=== PATIENT | female | born 1975 | race Caucasian/White ===

== ENCOUNTER → 2017-11-06 | Outpatient (CLI) | payer BC ==
[~2017-11-06] MED LIST: ASPI-390 PO; ONDA4TAB7 SL
--- NOTE | 2017-11-07 09:09 | CODING QUERY NO DIAGNOSIS ---
TREATMENT RENDERED WITHOUT A DIAGNOSIS To promote full compliance with coding requirements relating to patient care, physician participation is requested in all cases of train attendant uncertainty. Please assist us with providing a diagnosis/symptom for the test(s) below: A diagnosis/symptom was not documented on your Order. A valid diagnosis/symptom is required to bill all insurances. Please remember that we are unable to code a diagnosis of rule out, probable, possible, questionable, or suspected. Tests that require a diagnosis for date of service 11/06/17: * CHLAMYDIA/GC DNA (SPECIMEN SITE ENDOCERVICAL) DIAGNOSIS: Provider Signature: Date: Thank you Ericka Gómez [employer] Once completed, please kindly fax back to [phone] For questions please call [phone]
== END | disposition home or self-care (01) ==
LOC: C.LABSPEC 14:18
PROVIDERS: ATTEND Obstetrics & Gynecology
DX: Z34.81 Encounter for supervision of other normal pregnancy, first trimester (principal); Z3A.00 Weeks of gestation of pregnancy not specified

== ENCOUNTER → 2017-11-06 | Outpatient (CLI) | payer BC | END | disposition home or self-care (01) | LOC: C.PAPS 14:40 | PROVIDERS: ATTEND Obstetrics & Gynecology | DX: Z34.81 Encounter for supervision of other normal pregnancy, first trimester (principal) ==

== ENCOUNTER → 2018-01-12 | Outpatient (CLI) | payer BC ==
[2018-01-12 11:05] LABS: BASO % 0.2 %; BASO ABS # 0.02 K/uL (0-0.2); EOS % 0.6 %; EOS ABS # 0.06 K/uL (0-0.5); HEMATOCRIT 37.6 % (37-47); HEMOGLOBIN 13.2 g/dL (12.0-16.0); IG# 0.03 K/uL (0.00-0.02); LYMPH % 19.4 %; LYMPH ABS # 1.99 K/uL (1.2-3.4); MEAN CELL VOLUME 90.6 fL (80-100); MEAN CORPUSCULAR HEMOGLOBIN 31.8 pg (25-34); MEAN CORPUSCULAR HGB CONC 35.1 g/dl (32-36); MEAN PLATELET VOLUME 10.5 fL (7.4-10.4); MONO % 5.7 %; MONO ABS # 0.58 K/uL (0.11-0.59); NEUT % 73.8 %; NEUT ABS # 7.57 K/uL (1.4-6.5); PLATELET COUNT 293 K/uL (130-400); RED CELL DISTRIBUTION WIDTH CV 13.4 % (11.5-14.5); RED CELL DISTRIBUTION WIDTH SD 44.4 fL (36.4-46.3); WHITE BLOOD COUNT 10.25 K/uL (4.8-10.8)
== END | disposition home or self-care (01) ==
LOC: C.LAB1850 09:01
PROVIDERS: ATTEND Obstetrics & Gynecology
DX: O09.512 Supervision of elderly primigravida, second trimester (principal)

== ENCOUNTER → 2018-02-08 | Outpatient (CLI) | payer BC | END | disposition home or self-care (01) | LOC: C.LABSPEC 14:44 | PROVIDERS: ATTEND Obstetrics & Gynecology | DX: O99.89 Other specified diseases and conditions complicating pregnancy, childbirth and the puerperium (principal); R07.0 Pain in throat; Z3A.00 Weeks of gestation of pregnancy not specified ==

== ENCOUNTER 2018-03-12 16:28 | Outpatient (CLI) | payer BC ==
[2018-03-12] MEDS ORDERED: LACTATED RINGER'S 1000ML 500 ML IV ONE (16:31)
[2018-03-12] MEDS ORDERED: LACTATED RINGER'S 1000ML 1,000 ML IV SCH (16:31)
[2018-03-12] MEDS ORDERED: TERBUTALINE SULFATE 1 MG/ML VIAL SQ PRN (16:45)
== END 2018-03-12 17:40 | disposition home or self-care (01) ==
LOC: C.OPB 16:28 → C.LD 16:29 → C.OPB 17:40
PROVIDERS: ATTEND Obstetrics & Gynecology
DX: O62.9 Abnormality of forces of labor, unspecified (principal); Z3A.00 Weeks of gestation of pregnancy not specified

== ENCOUNTER → 2018-05-28 | Outpatient (CLI) | payer BC | END | disposition home or self-care (01) | LOC: C.LABSPEC 15:47 | PROVIDERS: ATTEND Obstetrics & Gynecology | DX: O09.513 Supervision of elderly primigravida, third trimester (principal); Z3A.00 Weeks of gestation of pregnancy not specified ==

== ENCOUNTER 2018-06-09 19:42 | Inpatient (IN) | payer BC ==
[~2018-06-09] VITALS: Ht 165.1 cm; Wt 66.4 kg
[2018-06-09] MEDS ORDERED: PRENTAB26 PO (20:33)
[2018-06-09 20:34] VITALS: Ht 165.1 cm; Wt 66.4 kg
[2018-06-09] MEDS ORDERED: LACTATED RINGER'S 1000ML 1,000 ML IV PRN (21:57)
[2018-06-09] MEDS ORDERED: LACTATED RINGER'S 1000ML 1,000 ML IV SCH (21:57)
[2018-06-09 22:51] LABS: HEMATOCRIT 32.7 % (37-47); MEAN CELL VOLUME 88.4 fL (80-100); MEAN CORPUSCULAR HEMOGLOBIN 29.7 pg (25-34); MEAN CORPUSCULAR HGB CONC 33.6 g/dl (32-36); NUCLEATED RED BLOOD CELL ABS 0.02 K/uL (0-0); PLATELET COUNT 228 K/uL (130-400); RED CELL DISTRIBUTION WIDTH CV 12.7 % (11.5-14.5); RED CELL DISTRIBUTION WIDTH SD 41.1 fL (36.4-46.3); WHITE BLOOD COUNT 15.14 K/uL (4.8-10.8)
[2018-06-09] MEDS ORDERED: EpHEDrine SULFATE INJ 50 MG/ML AMP ONE (22:51)
[2018-06-09] MEDS ORDERED: FENTANYL CITRATE INJ 50 MCG/1 ML 2 ML VIAL ONE (22:51)
[2018-06-09] MEDS ORDERED: BUPIVACAINE 0.25% 30 ML VIAL ONE (22:51)
[2018-06-09] MEDS ORDERED: FENTANYL 2MCG/ML ROPIV 1.25MG/ML 100ML BAG ONE (22:52)
[2018-06-09] MEDS ORDERED: NALOXONE HCL INJ 1 MG in SODIUM CHLORIDE 0.9% 1000ML 1,000 ML IV PRN (23:58)
[2018-06-09] MEDS ORDERED: LACTATED RINGER'S 1000ML 500 ML IV PRN (23:58)
[2018-06-10] MEDS ORDERED: DiphenhydrAMINE HCL 50 MG/ML VIAL IV PRN
[2018-06-10] MEDS ORDERED: FENTANYL 2MCG/ML ROPIV 1.25MG/ML 100ML BAG EPI PRN
[2018-06-10] MEDS ORDERED: EpHEDrine SULFATE INJ 50 MG/ML AMP IV PRN
[2018-06-10] MEDS ORDERED: NALBUPHINE HCL INJ 10 MG/ML 1ML AMP IV PRN
[2018-06-10] MEDS ORDERED: NALOXONE HCL INJ 0.4 MG/1 ML VIAL/CARP IV PRN
[2018-06-10] MEDS ORDERED: ONDANSETRON INJ 2 MG/ML 2 ML VIAL IV PRN
[2018-06-10] MEDS ORDERED: OXYTOCIN 30 UNITS/500ML NSS IV ONE (00:35)
[2018-06-10] MEDS ORDERED: METHYLERGONOVINE MALEATE 0.2 MG/ML AMP ONE (00:48)
[2018-06-10] MEDS ORDERED: OXYTOCIN 30 UNITS/500ML NSS IV PRN (01:15)
[2018-06-10] MEDS ORDERED: DIPHTHERIA/TETANUS/PERTUSSIS 0.5 ML SYR/VIAL IM. ONE (01:15)
[2018-06-10] MEDS ORDERED: METHYLERGONOVINE MALEATE 0.2 MG/ML AMP IM ONE (01:15)
[2018-06-10] MEDS ORDERED: ACETAMINOPHEN 325 MG TAB PO PRN (01:15)
[2018-06-10] MEDS ORDERED: HYDROCORTISONE ACETATE 25 MG SUPP PR PRN (01:15)
[2018-06-10] MEDS ORDERED: LANOLIN OINT EXT PRN ×2 (01:15→01:30)
--- NOTE | 2018-06-10 01:20 | Anesthesia Procedure Note ---
Anesthesia Epidural Removal Nt Date & Time Jun 10, 2018 at 01:20 Vital Signs Pain Intensity: 0.0 Notes Mental Status: alert / awake / arousable, participated in evaluation Nausea / Vomiting: adequately controlled Pain: adequately controlled Airway Patency, RR, SpO2: stable & adequate BP & HR: stable & adequate Hydration State: stable & adequate Neuraxial Anesthesia: was administered Anesthetic Complications: no major complications apparent, pt satisfied with anesthetic care Epidural: removed without complications, with tip intact
[2018-06-10] MEDS ORDERED: ACETAMINOPHEN/CODEINE 300/30MG TAB PO PRN ×2 (01:30)
[2018-06-10] MEDS ORDERED: BENZOCAINE 20% AER SPR 82.5 GM CAN EXT PRN (01:30)
[2018-06-10] MEDS ORDERED: SUPERCREAM 0.870 % 15GM JAR EXT PRN (01:30)
[2018-06-10 03:45] VITALS: BP 114/71; PULSE 101; TEMP 36.9; O2SAT 96
--- NOTE | 2018-06-10 04:15 | OPERATIVE REPORT ---
DATE OF OPERATION: 06/10/2018 DELIVERY NOTE A 42-year-old 4, para 3, 1 spontaneous AB, in good general health. Blood type is O positive, rubella immune. Vaginal beta strep negative. Went into spontaneous labor the day prior to admission. She contracted throughout the night, slept fitfully, then the next day the contractions became stronger. She was told to come in to maternity. She was having regular contractions. She was rating them at the beginning of 03/07 and we checked her 2 hours later and she went from 2-3 with a short cervix and tight membranes. She labored on her own unstimulated. Eventually she received epidural for pain control, but after the epidural she began to have some type 1 decels. I came up and checked her, she was about 8-9, the membranes intact. Ruptured the membranes, fluid was clear. In about 5 minutes, she went to full dilatation with 4-5 contractions. She pushed out a live male via direct occiput anterior position over an intact perineum. was suctioned through the mouth and the nose. Cord was clamped, cut by the father, cord blood was taken. With IV Pitocin running, the placenta was removed intact. The first-degree laceration of the perineum was repaired anatomically. The vaginal mucosa was approximated out and to beyond the hymenal ring with a running 2-0 Vicryl. A deep suture of 2-0 Vicryl was used to approximate the bulbocavernosus muscle. Separate deep suture was used to approximate the perineal body and a running subcuticular suture was used to approximate the perineal skin edges. Following this, vag exam including rectovaginal examination revealed no hematoma formation or sponges in the vagina. Hemostasis was excellent. Estimated blood loss was only 100 mL, 1 and 5 minute Apgars were estimated at 8 and 9 respectively. I attest to the content of the Intraoperative Record and any orders documented therein. Any exception s are noted below.
[2018-06-10 08:00] VITALS: BP 118/75; PULSE 78; TEMP 36.8
[2018-06-10] MEDS: DOCUSATE SODIUM 100 MG CAP PO SCH ×2 (08:46→19:30)
[2018-06-10] MEDS: IBUPROFEN 600 MG TAB PO PRN ×2 (14:38→23:46)
[2018-06-10 16:00] VITALS: BP 108/72; PULSE 84; TEMP 36.7
--- NOTE | 2018-06-10 18:17 | Progress Note ---
Subjective Jun 10, 2018. Subjective conversation w/ patient Ambulation: ambulating normally Voiding: no voiding problems Passing Gas: Yes Diet Tolerance: Regular Diet Lochia: Small Feeding Type: Breast Feeding Review of Systems Constitutional: + fever Objective Vital Signs Date Time Temp Pulse Resp B/P (MAP) Pulse Ox O2 Delivery O2 Flow Rate FiO2 06/10/18 16:00 36.7 84 18 108/72 (84) Room Air 06/10/18 08:00 36.8 78 18 118/75 (89) Room Air 06/10/18 08:00 Room Air 06/10/18 03:45 Room Air 06/10/18 03:45 36.9 101 16 114/71 (85) 96 Room Air Physical Exam General Appearance: WELL-APPEARING Abdomen: non tender Fundus: Firm, Non-Tender Extremities: no pedal edema, no calf tenderness Laboratory Results Last 24 Hours Test 06/09/18 22:10 White Blood Count 15.14 K/uL Red Blood Count 3.70 M/uL Hemoglobin 11.0 g/dL Hematocrit 32.7 % Mean Corpuscular Volume 88.4 fL Mean Corpuscular Hemoglobin 29.7 pg Mean Corpuscular Hemoglobin Concent 33.6 g/dl RDW Standard Deviation 41.1 fL RDW Coefficient of Variation 12.7 % Platelet Count 228 K/uL Mean Platelet Volume 12.0 fL Nucleated RBC Absolute Count (auto) 0.02 K/uL Nucleated Red Blood Cells % 0.1 % Assessment and Plan Post- Day#: 0
[2018-06-10 19:35] VITALS: BP 111/68; PULSE 76; TEMP 36.7; O2SAT 97
[2018-06-10 23:50] VITALS: BP 107/67; PULSE 74; TEMP 36.5
[2018-06-11] MEDS: IBUPROFEN 600 MG TAB PO PRN ×2 (06:27→10:14)
[2018-06-11 07:08] LABS: HEMOGLOBIN 11.6 g/dL (12.0-16.0)
[2018-06-11] MEDS: DOCUSATE SODIUM 100 MG CAP PO SCH (07:45)
[2018-06-11 08:00] VITALS: BP 117/82; PULSE 67; TEMP 36.5; O2SAT 98
--- NOTE | 2018-06-11 11:53 | Progress Note ---
Subjective Jun 11, 2018. Subjective conversation w/ patient Ambulation: ambulating normally Voiding: no voiding problems Passing Gas: Yes Diet Tolerance: Regular Diet Lochia: Small Feeding Type: Breast Feeding Review of Systems Constitutional: + fever Objective Vital Signs Date Time Temp Pulse Resp B/P (MAP) Pulse Ox O2 Delivery O2 Flow Rate FiO2 06/11/18 08:00 36.5 67 18 117/82 (94) 98 Room Air 06/11/18 07:15 Room Air 06/10/18 23:50 Room Air 06/10/18 23:50 36.5 74 18 107/67 (80) 06/10/18 19:35 97 Room Air 06/10/18 19:35 36.7 76 18 111/68 (82) 97 Room Air 06/10/18 16:00 36.7 84 18 108/72 (84) Room Air Physical Exam General Appearance: WELL-APPEARING Fundus: Firm, Non-Tender Extremities: no pedal edema, no calf tenderness Laboratory Results Last 24 Hours Test 06/11/18 06:53 Hemoglobin 11.6 g/dL Hematocrit 35.0 % Assessment and Plan Post- Day#: 1 Continue Routine Care: patient requests discharge
--- NOTE | 2018-06-11 11:55 | Discharge Instructions ---
Discharge Instructions Date of Service Jun 11, 2018. Admission Reason for Admission: Active Labor Discharge Discharge Diagnosis / Problem: term delivery Discharge Goals Goal(s): Routine recovery after delivery Activity Recommendations Activity Limitations: as noted below ACTIVITY RECOMMENDATIONS: * Gradual return to full activity over the next 2-3 weeks. * No lifting - nothing heavier than baby over the next 2-3 weeks. * Do not engage in vigorous exercise, sexual activity or sports until cleared by your physician. * Do not drive or operate any motorized equipment until cleared by your physician. * You may shower/bathe daily. DIET: Resume Previous Diet If Breast-feeding: * Increase caloric intake by 500 calories, eat 3 well balanced meals, 2 high protein snacks a day and drink 6-8 8oz. glasses of fluid per day. BREAST CARE: If you are not breast feeding: * Wear a supportive bra 24 hours a day for one to two weeks. * Avoid stimulating your breasts and nipples as much as possible during the first few weeks after delivery. * When taking a shower, have the warm water hit your back, not breasts. * When your breasts feel full, apply ice packs. Usually three to four times a day helps ease the discomfort. * Take a mild pain medication (Tylenol / Motrin) when you are uncomfortable. If breast feeding: * Use breast milk to lubricate nipples. Lansinoh cream may be used for sore nipples. You do not need to remove cream prior to breast feeding. If using a different brand of cream, check the label for directions regarding removal of cream prior to nursing. * Wear a supportive bra. * If having problems with breasts or breast feeding, call a marketing regional consultant or your health care provider. OVER THE COUNTER MEDICATION: * For discomfort or pain, you may use Acetaminophen (Tylenol), Ibuprofen (Advil ), or Naproxen (Aleve) following the package directions. * For constipation you may use Colace following the package directions. SPECIAL CARE INSTRUCTIONS: * Vaginal rest (no tampons, douching, intercourse) until after doctor 's visit. * control as discussed with doctor. * Verbalizes understanding of car seat law as reviewed with patient nursing. * Car Seat hand-out given and reviewed with patient by nursing. * Shaken baby information reviewed with patient by nursing. Call you doctor if: * Temperature greater than or equal to 100.4 degrees F or 38.0 degrees C. Take your temperature twice daily for a week. * Bleeding becomes heavier than the heaviest part of your period - saturating a sanitary pad within an hour. * Passing large clots. * Bleeding has a foul smelling odor. * Signs and symptoms of phlebitis: leg pain, warm, red or swollen area on leg. * "Baby Blues" lasting longer than two weeks. ++ If you have had a and incision has increased pain, redness, swelling, presence of any drainage, or if the incision starts to open up. If you have any questions or concerns, call your health care practitioner at [phone]. FOLLOW-UP VISIT: Please call the office at to schedule a 6 week examination. . Current Hospital Diet ACTIVITY RECOMMENDATIONS: * Gradual return to full activity over the next 2-3 weeks. * No lifting - nothing heavier than baby over the next 2-3 weeks. * Do not engage in vigorous exercise, sexual activity or sports until cleared by your physician. * Do not drive or operate any motorized equipment until cleared by your physician. * You may shower/bathe daily. DIET: Resume Previous Diet If Breast-feeding: * Increase caloric intake by 500 calories, eat 3 well balanced meals, 2 high protein snacks a day and drink 6-8 8oz. glasses of fluid per day. BREAST CARE: If you are not breast feeding: * Wear a supportive bra 24 hours a day for one to two weeks. * Avoid stimulating your breasts and nipples as much as possible during the first few weeks after delivery. * When taking a shower, have the warm water hit your back, not breasts. * When your breasts feel full, apply ice packs. Usually three to four times a day helps ease the discomfort. * Take a mild pain medication (Tylenol / Motrin) when you are uncomfortable. If breast feeding: * Use breast milk to lubricate nipples. Lansinoh cream may be used for sore nipples. You do not need to remove cream prior to breast feeding. If using a different brand of cream, check the label for directions regarding removal of cream prior to nursing. * Wear a supportive bra. * If having problems with breasts or breast feeding, call a marketing regional consultant or your health care provider. OVER THE COUNTER MEDICATION: * For discomfort or pain, you may use Acetaminophen (Tylenol), Ibuprofen (Advil ), or Naproxen (Aleve) following the package directions. * For constipation you may use Colace following the package directions. SPECIAL CARE INSTRUCTIONS: * Vaginal rest (no tampons, douching, intercourse) until after doctor 's visit. * control as discussed with doctor. * Verbalizes understanding of car seat law as reviewed with patient nursing. * Car Seat hand-out given and reviewed with patient by nursing. * Shaken baby information reviewed with patient by nursing. Call you doctor if: * Temperature greater than or equal to 100.4 degrees F or 38.0 degrees C. Take your temperature twice daily for a week. * Bleeding becomes heavier than the heaviest part of your period - saturating a sanitary pad within an hour. * Passing large clots. * Bleeding has a foul smelling odor. * Signs and symptoms of phlebitis: leg pain, warm, red or swollen area on leg. * "Baby Blues" lasting longer than two weeks. ++ If you have had a and incision has increased pain, redness, swelling, presence of any drainage, or if the incision starts to open up. If you have any questions or concerns, call your health care practitioner at [phone]. FOLLOW-UP VISIT: Please call the office at to schedule a 6 week examination. Patient's current hospital diet: Regular OB Diet Discharge Diet Recommended Diet: Regular Diet Pending Studies Studies pending at discharge: no Medical Emergencies . Who to Call and When: Medical Emergencies: If at any time you feel your situation is an emergency, please call 911 immediately. . Non-Emergent Contact Non-Emergency issues call your: [facility] Call Non-Emergent contact if: temperature is above 100.5 . . "Provider Documentation" section prepared by Raul Campuzano. .
[2018-06-11 13:34] VITALS: BP_DIAS 82; PULSE 67; TEMP 36.5
[2018-06-11] MEDS ORDERED: BISACODYL 5 MG TABEC PO SCH (20:00)
[2018-06-12] MEDS ORDERED: BISACODYL 10 MG SUPP PR PRN (07:00)
== END 2018-06-11 13:34 | disposition home or self-care (01) | DRG 775 ==
LOC: C.OPB 19:42 → C.LD 19:43 → C.OPB 21:59 → C.OBG 06-10 03:47
PROVIDERS: ADMIT Obstetrics & Gynecology; ATTEND Obstetrics & Gynecology
PROC: 0HQ9XZZ Repair Perineum Skin, External Approach (ICD-10-PCS; principal; 2018-06-10)
PROC: 10E0XZZ Delivery of Products of Conception, External Approach (ICD-10-PCS; principal; 2018-06-10)
DX: O70.0 First degree perineal laceration during delivery (principal); Z37.0 Single live birth; Z3A.38 38 weeks gestation of pregnancy